=== PATIENT | male | born 1980 | race African-American/Black ===

== ENCOUNTER 2019-08-16 17:16 | Emergency (ER) | payer SELFPAY ==
[2019-08-16] MEDS ORDERED: IBUPROFEN 200 MG TAB PO ONE (17:55)
[2019-08-16] MEDS ORDERED: HYDROCODONE/APAP 7.5/325 MG TAB ONE (17:55)
--- NOTE | 2019-08-16 18:30 | RAD REPORT ---
EXAM DESCRIPTION: RAD -Hand Left 3 View - 08/16/2019 6:10 pm CLINICAL HISTORY: Left hand pain status post injury FINDINGS: No fracture or dislocation is seen.
--- NOTE | 2019-08-16 18:38 | ER ---
Nurse's Notes [facility] Name: Fernando Braga Age: 39 yrs Sex: Male : 1980 Arrival Date: 08/16/2019 Time: 17:19 Bed 27 Private MD: Diagnosis: Contusion of left hand Presentation: 08/16 17:37 Presenting complaint: Patient states: He was at work putting a pole into the ground aj1 when it bounced back and hit his left hand at approximately 1530 today. Patient reports pain and numbness to left hand, swelling noted to left hand. Patient reports that he is unable to move his fingers due to pain. Transition of care: patient was not received from another setting of care. Onset of symptoms was August 16, 2019. Risk Assessment: Do you want to hurt yourself or someone else? Patient reports no desire to harm self or others. Initial Sepsis Screen: Does the patient meet any 2 criteria? No. Patient's initial sepsis screen is negative. Does the patient have a suspected source of infection? No. Patient's initial sepsis screen is negative. Care prior to arrival: None. 17:37 Method Of Arrival: Ambulatory aj1 17:37 Acuity: SHAKILA 4 aj1 Triage Assessment: 17:39 General: Appears in no apparent distress. uncomfortable, Behavior is calm, cooperative, aj1 appropriate for age. Pain: Complains of pain in left hand Pain currently is 9 out of 10 on a pain scale. Musculoskeletal: Swelling present in left hand. Injury Description: Patient reports that a pole bounced backward and hit his hand. Historical: - Allergies: 17:39 No Known Allergies; aj1 - Home Meds: 17:39 None [Active]; aj1 - PMHx: 17:39 None; aj1 - PSHx: 17:39 Cholecystectomy; aj1 - Immunization history:: Flu vaccine is not up to date. - Social history:: Smoking status: Patient uses tobacco products, denies chronic smoking, but will smoke occasionally. - Ebola Screening: : Patient denies travel to an Ebola-affected area in the 21 days before illness onset. Screenin:41 Abuse screen: Denies threats or abuse. Denies injuries from another. Nutritional aj1 screening: No deficits noted. Tuberculosis screening: No symptoms or risk factors identified. 19:15 Fall Risk None identified. aj1 Assessment: 17:41 General: Appears in no apparent distress. uncomfortable, Behavior is calm, cooperative, aj1 appropriate for age. Pain: Complains of pain in left hand Pain does not radiate. Pain currently is 9 out of 10 on a pain scale. Neuro: Level of Consciousness is awake, alert, obeys commands, Oriented to person, place, time, situation. Cardiovascular: Patient's skin is warm and dry. Respiratory: Airway is patent Respiratory effort is even, unlabored, Respiratory pattern is regular, symmetrical. GI: No signs and/or symptoms were reported involving the gastrointestinal system. : No signs and/or symptoms were reported regarding the genitourinary system. EENT: No signs and/or symptoms were reported regarding the EENT system. Derm: No signs and/or symptoms reported regarding the dermatologic system. Skin is pink, warm \T\ dry. normal. Musculoskeletal: Range of motion: limited in DIP of left little finger, PIP of left little finger, MCP of left little finger, DIP of left ring finger, PIP of left ring finger, MCP of left ring finger, DIP of left middle finger, PIP of left middle finger, MCP of left middle finger, DIP of left index finger, PIP of left index finger and MCP of left index finger Swelling present in left hand. 18:23 Reassessment: Patient appears in no apparent distress at this time. No changes from aj1 previously documented assessment. Patient and/or family updated on plan of care and expected duration. Pain level reassessed. Patient is alert, oriented x 3, equal unlabored respirations, skin warm/dry/pink. 19:14 Reassessment: Patient appears in no apparent distress at this time. No changes from aj1 previously documented assessment. Patient and/or family updated on plan of care and expected duration. Pain level reassessed. Patient is alert, oriented x 3, equal unlabored respirations, skin warm/dry/pink. Vital Signs: 17:39 BP 131 / 91; Pulse 68; Resp 18; Temp 98.5; Pulse Ox 100% on R/A; Weight 86.18 kg (R); aj1 Height 6 ft. 2 in. (187.96 cm) (R); Pain 9/10; 19:14 BP 133 / 94; Pulse 62; Resp 16; Pulse Ox 99% on R/A; aj1 17:39 Body Mass Index 24.39 (86.18 kg, 187.96 cm) aj1 ED Course: 17:19 Patient arrived in ED. as 17:34 [facility] Pitt [facility] jr8 17:34 Edison Howard MD is Attending Physician. jr8 17:37 Angie Cobos, RN is Primary Nurse. aj1 17:38 Triage completed. aj1 17:41 Arm band placed on. aj1 17:41 Patient has correct armband on for positive identification. Bed in low position. Call aj1 light in reach. 17:41 No provider procedures requiring assistance completed. aj1 18:10 XRAY Hand LEFT 3 View In Process Unspecified. EDMS 18:37 Romulo Harrington MD is Referral Physician. jr8 19:15 Patient did not have IV access during this emergency room visit. aj1 Administered Medications: 17:57 Drug: Motrin 600 mg Route: PO; aj1 19:13 Follow up: Response: No adverse reaction aj1 17:58 Drug: [place] (7.5 mg-325 mg) 1 tabs {Note: RASS score 0, patient is alert.} Route: PO; aj1 19:14 Follow up: Response: No adverse reaction aj1 Outcome: 18:38 Discharge ordered by . jr8 19:15 Discharged to home ambulatory. aj1 19:15 Condition: good 19:15 Discharge instructions given to patient, Instructed on discharge instructions, follow up and referral plans. medication usage, Demonstrated understanding of instructions, follow-up care, medications, Prescriptions given X 1. 19:16 Patient left the ED. aj1 Signatures: Dispatcher [employer] EDNE Angie Cobos, RN RN aj1 Tawana Bingham as Kev Pitt PA PA jr8
--- NOTE | 2019-08-16 18:38 | EDPHYS ---
Physician Documentation [facility] Name: Fernando Braga Age: 39 yrs Sex: Male : 1980 Arrival Date: 08/16/2019 Time: 17:19 Bed 27 Private MD: ED Physician Edison Howard HPI: 08/16 18:34 This 39 yrs old Black Male presents to ER via Ambulatory with complaints of Hand Injury.jr8 18:34 The patient or guardian reports decreased range of motion, pain, swelling, tenderness. jr8 The complaints affect the MCP of left thumb and CMC of left thumb. Context: The problem was sustained at work, resulted from a direct blow. Onset: The symptoms/episode began/occurred acutely, today. Modifying factors: The symptoms are alleviated by nothing, the symptoms are aggravated by movement. Associated signs and symptoms: The patient has no apparent associated signs or symptoms. Severity of symptoms: At their worst the symptoms were moderate, in the emergency department the symptoms are unchanged. The patient has not experienced similar symptoms in the past. The patient has not recently seen a physician. Patient stated that he was holding a pole while his boss was pounding it in ground. Stated that it slipped and got hit in hand. Pain since then with swelling and decreased ROM . Historical: - Allergies: 17:39 No Known Allergies; aj1 - Home Meds: 17:39 None [Active]; aj1 - PMHx: 17:39 None; aj1 - PSHx: 17:39 Cholecystectomy; aj1 - Immunization history:: Flu vaccine is not up to date. - Social history:: Smoking status: Patient uses tobacco products, denies chronic smoking, but will smoke occasionally. - Ebola Screening: : Patient denies travel to an Ebola-affected area in the 21 days before illness onset. ROS: 18:34 Eyes: Negative for injury, pain, redness, and discharge, ENT: Negative for injury, jr8 pain, and discharge, Neck: Negative for injury, pain, and swelling, Cardiovascular: Negative for chest pain, palpitations, and edema, Respiratory: Negative for shortness of breath, cough, wheezing, and pleuritic chest pain, Abdomen/GI: Negative for abdominal pain, nausea, vomiting, diarrhea, and constipation, Back: Negative for injury and pain, Skin: Negative for injury, rash, and discoloration, Neuro: Negative for headache, weakness, numbness, tingling, and seizure. 18:34 MS/extremity: Positive for decreased range of motion, pain, swelling, tenderness, of the left hand. Exam: 18:34 Cardiovascular: Regular rate and rhythm with a normal S1 and S2. No gallops, murmurs, jr8 or rubs. Normal PMI, no JVD. No pulse deficits. Respiratory: Lungs have equal breath sounds bilaterally, clear to auscultation and percussion. No rales, rhonchi or wheezes noted. No increased work of breathing, no retractions or nasal flaring. Abdomen/GI: Soft, non-tender, with normal bowel sounds. No distension or tympany. No guarding or rebound. No evidence of tenderness throughout. Back: No spinal tenderness. No costovertebral tenderness. Full range of motion. Skin: Warm, dry with normal turgor. Normal color with no rashes, no lesions, and no evidence of cellulitis. Neuro: Awake and alert, GCS 15, oriented to person, place, time, and situation. Cranial nerves II-XII grossly intact. Motor strength 5/5 in all extremities. Sensory grossly intact. Cerebellar exam normal. Normal gait. 18:34 Musculoskeletal/extremity: Extremities: grossly normal except: noted in the left hand: Patient has tenderness and swelling to CMC region of left hand with decreased ROM , Circulation is intact in all extremities. Sensation intact. Vital Signs: 17:39 BP 131 / 91; Pulse 68; Resp 18; Temp 98.5; Pulse Ox 100% on R/A; Weight 86.18 kg (R); aj1 Height 6 ft. 2 in. (187.96 cm) (R); Pain 9/10; 19:14 BP 133 / 94; Pulse 62; Resp 16; Pulse Ox 99% on R/A; aj1 17:39 Body Mass Index 24.39 (86.18 kg, 187.96 cm) aj1 MDM: 17:38 Patient medically screened. jr8 18:34 Data reviewed: vital signs, nurses notes, radiologic studies, plain films, and as a jr8 result, I will discharge patient. Data interpreted: Pulse oximetry: on room air is 100 %. Interpretation: normal. Counseling: I had a detailed discussion with the patient and/or guardian regarding: the historical points, exam findings, and any diagnostic results supporting the discharge/admit diagnosis, radiology results, the need for outpatient follow up, a orthopedic surgeon, to return to the emergency department if symptoms worsen or persist or if there are any questions or concerns that arise at home. 08/16 17:42 Order name: XRAY Hand LEFT 3 View; Complete Time: 18:34 jr8 Administered Medications: 17:57 Drug: Motrin 600 mg Route: PO; aj1 19:13 Follow up: Response: No adverse reaction aj1 17:58 Drug: [place] (7.5 mg-325 mg) 1 tabs {Note: RASS score 0, patient is alert.} Route: PO; aj1 19:14 Follow up: Response: No adverse reaction aj1 Disposition: 08/16/19 18:38 Discharged to Home. Impression: Contusion of left hand. - Condition is Stable. - Discharge Instructions: Hand Contusion. - Prescriptions for Ibuprofen 800 mg Oral Tablet - take 1 tablet by ORAL route every 12 hours As needed take with food; 20 tablet. - Medication Reconciliation Form, Thank You Letter, Antibiotic Education, Prescription Opioid Use form. - Follow up: Romulo Harrington MD; When: 1 week; Reason: Recheck today's complaints, Continuance of care, Re-evaluation by your physician. - Problem is new. - Symptoms have improved. Signatures: Dispatcher [employer] EDMS Angie Cobos RN RN aj1 Kev Pitt PA PA jr8 Corrections: (The following items were deleted from the chart) 19:16 18:38 08/16/2019 18:38 Discharged to Home. Impression: Contusion of left hand. aj1 Condition is Stable. Forms are Medication Reconciliation Form, Thank You Letter, Antibiotic Education, Prescription Opioid Use. Follow up: Romulo Harrington; When: 1 week; Reason: Recheck today's complaints, Continuance of care, Re-evaluation by your physician. Problem is new. Symptoms have improved. jr8
[2019-08-16 20:13] VITALS: TEMP 98.5
[2019-08-16 20:18] VITALS: BP 133/94; O2SAT 99
== END 2019-08-16 19:16 | disposition home or self-care (01) ==
LOC: ER 17:16
DX: S60.222A Contusion of left hand, initial encounter (principal); W22.8XXA Striking against or struck by other objects, initial encounter; Y93.89 Activity, other specified; Y92.89 Other specified places as the place of occurrence of the external cause; Y99.8 Other external cause status; Z72.0 Tobacco use
CPT/HCPCS: 99283

== ENCOUNTER 2024-09-25 14:07 | Emergency (ER) | payer SELFPAY ==
--- OUTSIDE RECORDS SUMMARY | 2024-09-25 14:11 | XMS REPORT | Continuity of Care Document ---
Author Name Unknown Address [address] [place] [address] [facility] thconnect Address [address] [place] [address] Care Team Providers Care Inside Sales Account Representative Name Role Phone Miriam Lutz RN Attending Clinician Renan Garcia I Attending Clinician Eileen Patel Attending Clinician EILEEN WILDER Attending Clinician Unavailable Doctor Unassigned, Fielding Attending Clinician U navailable Allergies, Adverse Reactions, Alerts Allergy Name Allergy Type Status Severity Reaction(s) Onset Date Inactive Date Treating Clinician Comments Source NO KNOWN ALLERGIE S Drug Class Active [facility] Social History Social Habit Start Date Stop Date Quantity Comments Source Sex Assigned At [facility] Exposure to SARS-CoV-2 (event) Not sure [facility] Smoking Status Start Date Stop Date Source Unknown if ever smoked [facility] Encounters Start Date/Time End Date/Time Encounter Type Admission Type Attending Clinicians Care Facility Care Department Encounter ID Source 2020-05-12 00:00:00 2020-05-12 00:00:00 Letter (Out) Miriam Lutz [facility] [id number] [facility] 2020-05-08 16:26:05 2020-05-08 16:46:05 Laboratory Only Lab, Eileen Vang [facility] [address] [id number] [facility] 2020-05-08 16:40:00 2020-05-08 16:40:00 Outpatient EILEEN CALVIN [facility] [id number] [facility] 2020-05-08 00:00:00 2020-05-08 00:00:00 Letter (Out) Doctor Unassigned, Fielding [facility] [id number] [facility]
[2024-09-25] MEDS ORDERED: NA CHLORIDE 0.9% 1,000 ML ONE (14:46)
[2024-09-25] MEDS ORDERED: FAMOTIDINE 20 MG/2 ML VIAL IV ONE (14:46)
[2024-09-25 14:52] LABS: Absolute Eosinophils 0.1 K/uL (0-0.5); Absolute Lymphocytes (CBC) 2.1 K/uL (0.7-4.9); Absolute Monocytes 0.7 K/uL (0.1-1.3); Eosinophils % 1.1 % (0-4.4); Hematocrit 49.4 % (39.6-49.0); Hemoglobin 16.4 g/dL (13.6-17.9); Lymphocytes % 43.5 % (15.3-44.8); MCH 30.9 pg (27.0-35.0); MCHC 33.2 g/dL (32.0-36.0); MCV 92.9 fL (80-100); MPV 7.7 fL (7.6-11.3); Monocytes % 13.5 % (3.3-12.3); Neutrophils % 40.9 % (41.7-73.7); Nucleated Red Blood Cells % 0.1 % (0-0); Platelets 301 thou/uL (152-406); RBC Red Blood Cell Count 5.32 M/uL (4.33-5.43); Red Cell Distribution Width 14.3 % (12.1-15.2)
[2024-09-25 15:06] LABS: SARS-CoV-2 Antigen CONTROL BLUE LINE VIS/BG OK; SARS-CoV-2 Antigen Rapid Res Negative (Negative)
[2024-09-25 15:08] LABS: Albumin 3.9 g/dL (3.4-5.0); Albumin/Globulin Ratio 1.1 (1.1-1.8); Anion Gap 8.4 mEq/L (5.0-15.0); Bilirubin Total 0.6 mg/dL (0.2-1.0); Globulin 3.4 g/dL (2.3-3.5); Potassium 3.4 mEq/L (3.5-5.1); Protein, Total 7.3 g/dL (6.4-8.2)
--- NOTE | 2024-09-25 15:52 | RAD REPORT ---
EXAMINATION: CT ABDOMEN AND PELVIS WITH CONTRAST CLINICAL INDICATION: Abdominal pain TECHNIQUE: CT abdomen and pelvis was performed, after the administration of 100 cc Isovue-300.. Sagit marlon and coronal reconstructions were obtained. One or more of the following dose reduction techniques were used: Automated exposure control, adjustment of the mA and kV according to patient si ze, and iterative reconstruction. Unless otherwise specified, incidental findings do not require dedicated imaging follow-up. [id number]. Oral contrast was not given which limits evaluation of bowel and appendix. COMPARISON: .2013 FINDINGS: Liver, spleen, pancreas, adrenals and kidneys appear unremarkable No evidence of diverticulitis. Cholecystectomy. : IMPRESSION: No acute abnormality displayed
--- NOTE | 2024-09-25 16:27 | EDPHYS ---
Physician Documentation [facility] Name: Fernando Braga Age: 44 yrs Sex: Male : 1980 Arrival Date: 09/25/2024 Time: 14:07 Bed 17 Private MD: ED Physician Edison Howard HPI: 09/25 20:41 This 44 yrs old Black Male presents to ER via Ambulatory with complaints of Abdominal kb Pain. 20:41 Pt is a 44 year old male who presents for upper abd pain that has been constant for kb over a month with intermittent diarrhea. Reports sore throat, cough and congestion over the last week as well. No aggravating or alleviating factors. . Historical: - Allergies: 14:15 No Known Allergies; ko1 - Home Meds: 14:15 None [Active]; ko1 - PMHx: 14:15 Hypertensive disorder; ko1 - PSHx: 14:15 Cholecystectomy; ko1 - Immunization history:: Adult Immunizations up to date. - Infectious Disease History:: Denies. - Social history:: Smoking status: Patient denies any tobacco usage or history of. ROS: 20:40 Constitutional: As per HPI kb Exam: 20:40 Constitutional: This is a well developed, well nourished patient who is awake, alert, kb and in no acute distress. Head/Face: Normocephalic, atraumatic. ENT: Moist Mucous membranes Cardiovascular: Regular rate Respiratory: Respirations even and unlabored. No increased work of breathing. Talking in full sentences Skin: Warm, dry with normal turgor. Normal color. MS/ Extremity: Pulses equal, no cyanosis. Neurovascular intact. Full, normal range of motion. Neuro: Awake and alert, GCS 15, oriented to person, place, time, and situation. 20:40 Abdomen/GI: Inspection: abdomen appears normal, Bowel sounds: normal, Palpation: soft, in all quadrants, mild abdominal tenderness, in the right upper quadrant, left upper quadrant and left lower quadrant, Vital Signs: 14:12 BP 129 / 90; Pulse 78; Resp 15; Temp 97; Pulse Ox 100% on R/A; ko1 15:00 BP 139 / 88; Pulse 61; Resp 16; Pulse Ox 100% ; me1 16:00 BP 140 / 97; Pulse 56; Resp 14; Pulse Ox 100% on R/A; me1 MDM: 14:14 Medical Screening Exam initiated kb 20:40 Differential diagnosis: cholecystitis, Cholelithiasis, gastritis, gastroesophageal kb reflux disease, non-specific abd pain, pancreatitis. Data reviewed: vital signs, nurses notes. 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 09/25 14:29 Order name: CBC with Diff; Complete Time: 15:06 kb 09/25 14:29 Order name: CMP; Complete Time: 15:13 kb 09/25 14:29 Order name: Lipase; Complete Time: 15:13 kb 09/25 14:29 Order name: Flu; Complete Time: 15:13 kb 09/25 14:29 Order name: Strep kb 09/25 14:29 Order name: SARS-COV-2 Antigen Rapid; Complete Time: 15:07 kb 09/25 15:04 Order name: Throat Culture EDMS 09/25 14:29 Order name: CT Abd/Pelvis - IV Contrast Only; Complete Time: 15:53 kb 09/25 14:29 Order name: IV Saline Lock; Complete Time: 14:44 kb 09/25 14:29 Order name: Labs collected and sent; Complete Time: 14:44 kb Administered Medications: 14:57 Drug: Famotidine IVP 20 mg IVP once; dilute with 10 mL 0.9% NaCl; give over 2 minutes me1 Route: IVP; Site: right antecubital; 15:00 Follow up: Response: No adverse reaction me1 14:57 Drug: NS 0.9% IV 1000 ml IV at 1 bolus Per protocol; to be given as a bolus over 60 me1 minutes Route: IV; Rate: 1 bolus; Site: right antecubital; 16:30 Follow up: Response: No adverse reaction; IV Status: Completed infusion; IV Intake: me1 1000ml Disposition Summary: 09/25/24 16:26 Discharge Ordered Notes: Location: Home kb Condition: Stable kb Diagnosis - Upper abdominal pain, unspecified kb Followup: kb - With: Emergency Department - When: As needed - Reason: Worsening of condition Followup: kb - With: Private Physician - When: 2 - 3 days - Reason: Recheck today's complaints, Continuance of care, Re-evaluation by your physician Discharge Instructions: - Discharge Summary Sheet kb - Abdominal Pain, Adult, [id number] kb Forms: - Medication Reconciliation Form kb - Antibiotic Education kb - Prescription Opioid Use kb - Patient Portal Instructions kb - Leadership Thank You Letter kb Prescriptions: - Protonix 40 mg Oral Tablet - take 1 tablet ORAL route once daily; 30 tablet; Refills: 0, Product Selection kb Permitted Addendum: 10/02/2024 06:58 Co-signature as Attending Physician, Edison Howard MD I reviewed the patient's care r n provided by the Advanced Practice Provider and agree with the diagnosis and treatment plan. Signatures: Dispatcher [employer] EDAbbi Cates, CODING TEAM LEAD-C CODING TEAM LEAD-Ckb Edison Howard MD MD rn Oliver, Kathy, RN RN ko1 Yissel Jackson RN RN me1 Corrections: (The following items were deleted from the chart) 09/25 14:16 14:15 PSHx: None; ko1 ko1 14:30 14:30 CBC+H.LAB.BRZ ordered. EDMS EDMS 14:30 14:30 COMPREHENSIVE METABOLIC PANEL+C.LAB.BRZ ordered. EDMS EDMS 14:30 14:30 LIPASE+C.LAB.BRZ ordered. EDMS EDMS 14:30 14:30 Influenza Screen (A \T\ B)+BA.LAB.BRZ ordered. EDMS EDMS 14:30 14:30 Group A Streptococcus Rapid Sc+BA.LAB.BRZ ordered. EDMS EDMS 14:30 14:30 SARS-COV-2 Antigen Rapid+I.LAB.BRZ ordered. EDMS EDMS 14:30 14:30 Abdomen Pelvis W Con+CT.RAD.BRZ ordered. EDMS EDMS
--- NOTE | 2024-09-25 16:27 | ER ---
Nurse's Notes [facility] Name: Fernando Braga Age: 44 yrs Sex: Male : 1980 Arrival Date: 09/25/2024 Time: 14:07 Bed 17 Private MD: Diagnosis: Upper abdominal pain, unspecified Presentation: 09/25 14:12 Chief complaint: Patient states: abdominal pain for months, worsening today. Sore ko1 throat for a couple of days. Coronavirus screen: At this time, the client does not indicate any symptoms associated with coronavirus-19. Ebola Screen: No symptoms or risks identified at this time. Initial Sepsis Screen: Does the patient meet any 2 criteria? No. Patient's initial sepsis screen is negative. Does the patient have a suspected source of infection? No. Patient's initial sepsis screen is negative. Risk Assessment: Do you want to hurt yourself or someone else? Patient reports no desire to harm self or others. Onset of symptoms is unknown. 14:12 Method Of Arrival: Ambulatory ko1 14:12 Acuity: SHAKILA 3 ko1 Triage Assessment: 14:15 General: Appears in no apparent distress. Behavior is calm, cooperative, appropriate ko1 for age. Pain: Complains of pain in abdomen. GI: Reports upper abdominal pain, diarrhea, nausea. Historical: - Allergies: 14:15 No Known Allergies; ko1 - Home Meds: 14:15 None [Active]; ko1 - PMHx: 14:15 Hypertensive disorder; ko1 - PSHx: 14:15 Cholecystectomy; ko1 - Immunization history:: Adult Immunizations up to date. - Infectious Disease History:: Denies. - Social history:: Smoking status: Patient denies any tobacco usage or history of. Screenin:28 [facility] ED Fall Risk Assessment (Adult) History of falling in the last 3 months, me1 including since admission No falls in past 3 months (0 pts) Confusion or Disorientation No (0 pts) Intoxicated or Sedated No (0 pts) Impaired Gait No (0 pts) Mobility Assist Device Used No (0 pt) Altered Elimination No (0 pt) Score/Fall Risk Level 0 - 2 = Low Risk Maintained a safe environment, Provided non-skid footwear, Hourly rounding (assess needs \T\ fall precautionary measures) done. Abuse screen: Denies threats or abuse. Nutritional screening: No deficits noted. Tuberculosis screening: No symptoms or risk factors identified. Assessment: 14:28 General: Appears comfortable, well groomed, well developed, well nourished, Behavior is me1 calm, cooperative, appropriate for age, Reports abdominal pain for months, worsening today. Sore throat, body aches, cough and some congestion for a couple of days. Pain: Complains of pain in abdomen Pain does not radiate. Pain currently is 10 out of 10 on a pain scale. Quality of pain is described as crampy, Pain began months ago Is continuous. Neuro: Level of Consciousness is awake, alert, obeys commands, Oriented to person, place, time, situation, Appropriate for age. Cardiovascular: Patient's skin is warm and dry. Respiratory: Airway is patent Respiratory effort is even, unlabored, Respiratory pattern is regular, symmetrical. Respiratory: Reports cough that is. GI: Abdomen is non-distended, Bowel sounds present X 4 quads. Abdomen is tender to palpation in right upper quadrant and left upper quadrant Reports upper abdominal pain, diarrhea, nausea. : No signs and/or symptoms were reported regarding the genitourinary system. EENT: Reports nasal congestion pain when swallowing. EENT: Reports. Derm: Skin is intact, is healthy with good turgor, Skin is pink, warm \T\ dry. Musculoskeletal: No signs and/or symptoms reported regarding the musculoskeletal system. Vital Signs: 14:12 BP 129 / 90; Pulse 78; Resp 15; Temp 97; Pulse Ox 100% on R/A; ko1 15:00 BP 139 / 88; Pulse 61; Resp 16; Pulse Ox 100% ; me1 16:00 BP 140 / 97; Pulse 56; Resp 14; Pulse Ox 100% on R/A; me1 ED Course: 14:10 Patient arrived in ED. al6 14:14 [facility]-C [facility]. kb 14:14 Edison Howard MD is Attending Physician. kb 14:15 Triage completed. ko1 14:15 Arm band placed on right wrist. Patient placed in an exam room, on a stretcher, on ko1 pulse oximetry, Patient notified of wait time. 14:22 Yissel Jackson, DAISY is Primary Nurse. me1 14:28 Patient has correct armband on for positive identification. Bed in low position. Call me1 light in reach. Side rails up X 1. Provided Education on: POC. Verbalized understanding.. Client placed on continuous cardiac and pulse oximetry monitoring. NIBP monitoring applied. Pulse ox on. NIBP on. 14:43 Initial lab(s) drawn, by me, sent to lab. COVID swab sent to lab. Flu and/or RSV swab me1 sent to lab. Strep swab sent to lab. Inserted saline lock: 20 gauge in right antecubital area, using aseptic technique. 14:44 CBC with Diff Sent. me1 14:44 CMP Sent. me1 14:44 Lipase Sent. me1 14:44 SARS-COV-2 Antigen Rapid Sent. me1 14:44 Strep Sent. me1 14:44 Flu Sent. me1 15:35 CT Abd/Pelvis - IV Contrast Only In Process Unspecified. EDMS 16:30 No provider procedures requiring assistance completed. me1 16:36 IV discontinued, intact, bleeding controlled, No redness/swelling at site. Pressure me1 dressing applied. Administered Medications: 14:57 Drug: Famotidine IVP 20 mg IVP once; dilute with 10 mL 0.9% NaCl; give over 2 minutes me1 Route: IVP; Site: right antecubital; 15:00 Follow up: Response: No adverse reaction me1 14:57 Drug: NS 0.9% IV 1000 ml IV at 1 bolus Per protocol; to be given as a bolus over 60 me1 minutes Route: IV; Rate: 1 bolus; Site: right antecubital; 16:30 Follow up: Response: No adverse reaction; IV Status: Completed infusion; IV Intake: me1 1000ml Medication: 14:28 VIS not applicable for this client. me1 Intake: 16:30 IV: 1000ml; Total: 1000ml. me1 Outcome: 16:26 Discharge ordered by MD. hawkins 16:36 Discharged to home ambulatory, me1 16:36 Condition: stable 16:36 Discharge instructions given to patient, Instructed on discharge instructions, follow up and referral plans. medication usage, Demonstrated understanding of instructions, follow-up care, medications, Prescriptions given X 1, 16:36 Patient left the ED. me1 Signatures: Dispatcher [employer] [facility] Abbi Martinez, ROPING MACHINE TENDER-C ROPING MACHINE TENDER-Bernadette Castillo RN RN ko1 Yissel Jackson RN RN me1 Tessie Gonsalez Corrections: (The following items were deleted from the chart) 14:16 14:15 PSHx: None; ko1 ko1 14:23 14:12 Chief complaint: Patient states: abdominal pain for months, worsening today. Sore me1 throat for a couple of days. ko1 14:28 14:12 Chief complaint: Patient states: abdominal pain for months, worsening today. Sore me1 throat for a couple of days. me1
[2024-09-25 22:44] VITALS: TEMP 97; O2SAT 100
[2024-09-25 22:47] VITALS: BP 140/97
== END 2024-09-25 16:36 | disposition home or self-care (01) ==
LOC: ER 14:07
DX: R10.12 Left upper quadrant pain (principal); Z11.52 Encounter for screening for COVID-19
CPT/HCPCS: 36415; 74177; 80053; 83690; 85025; 87070; 87081; 87804; 87811; 96361; 96374; 99284; J7030; Q9967